=== PATIENT | female | born 1990 | race Caucasian/White ===

== ENCOUNTER 2023-03-24 13:45 | Outpatient (CLI) | payer BC, SELFPAY ==
--- NOTE | 2023-03-24 14:00 | CRLHL7_ITS ---
For Patients: As a result of the Century Cures Act, medical imaging exams and procedure reports are released immediately into your electronic medical record. You may view this report before your referring provider. If you have questions, please contact your health care provider. CLINICAL HISTORY: Displacement of IUD TECHNIQUE: 2D mendes scale and color Doppler images were acquired of the pelvis using a transvaginal approach. FINDINGS: On transvaginal imaging, the myometrium has a normal uniform echotexture. The uterus measures 8.7 x 4.1 x 5.7 cm. IUD is in good position within the endometrial canal. The left ovary measures 3.0 x 2.0 x 2.3 cm in size and the right ovary measures 2.5 x 1.9 x 2.5 cm. The ovaries demonstrate normal arterial and venous blood flow on color Doppler analysis. There are no suspicious fluid collections within the cul-de-sac. IMPRESSION: Normal position of the IUD. Dictated by Reddy Oropeza MD @ 03/25/2023 6:03:56 AM (Electronically Signed)
== END 2023-03-24 13:46 | disposition home or self-care (01) ==
LOC: US 13:46
PROVIDERS: Visit Provider Registered Nurse
DX: Z30.431 Encounter for routine checking of intrauterine contraceptive device (principal)
CPT/HCPCS: 76830

== ENCOUNTER 2023-03-29 07:34 | Outpatient (CLI) | payer BC, SELFPAY ==
--- NOTE | 2023-03-29 07:45 | CRLHL7_ITS ---
For Patients: As a result of the Century Cures Act, medical imaging exams and procedure reports are released immediately into your electronic medical record. You may view this report before your referring provider. If you have questions, please contact your health care provider. DIGITAL DIAGNOSTIC RIGHT MAMMOGRAM WITH IMPLANT-DISPLACED VIEWS USING TOMOSYNTHESIS AND COMPUTER-AIDED DETECTION RIGHT BREAST ULTRASOUND CLINICAL HISTORY: RIGHT breast lump. COMPARISON: None. TECHNIQUE: Digital RIGHT mammogram in three projections. Tomosynthesis and CAD utilized. Real-time ultrasound imaging of RIGHT breast with imaging documentation. BREAST COMPOSITION: The breast is heterogeneously dense, which may obscure small masses. FINDINGS: 3D implant-displaced CC, MLO and true lateral RIGHT breast mammogram images submitted along with 2D non implant-displaced CC and MLO views. The implant is intact. No suspicious masses or architectural distortion. No adenopathy or suspicious calcifications. Targeted RIGHT breast ultrasound performed in the area of concern 9 o`clock 8 cm from the nipple. In this location there is an ovoid simple cyst with a few internal echoes measuring 7 x 4 x 6 millimeters. This is located just beneath the skin. IMPRESSION: Benign simple cyst/sebaceous cyst RIGHT breast 9 o`clock 8 cm from the nipple measuring 7 millimeters. No evidence of implant complication or malignancy. RECOMMENDATIONS: Clinical follow-up. Age-appropriate screening mammography. Results and recommendations discussed with the patient. BI-RADS Category 2: Benign A lay language report of this examination will be provided to the patient. Dictated by Reddy Oropeza MD @ 03/29/2023 9:20:16 AM jj/Dictated by: Reddy Oropeza MD @ 03/29/2023 9:20:00 AM (Electronically Signed)
--- NOTE | 2023-03-29 08:15 | CRLHL7_ITS ---
For Patients: As a result of the Cures Act, medical imaging exams and procedure reports are released immediately into your electronic medical record. You may view this report before your referring provider. If you have questions, please contact your health care provider. PLEASE SEE DIGITAL DIAGNOSTIC RIGHT MAMMOGRAM PERFORMED SAME DAY CRL:kal bowden/Dictated by: Reddy Oropeza MD @ 03/29/2023 9:20:00 AM (Electronically Signed)
== END 2023-03-29 07:35 | disposition home or self-care (01) ==
LOC: MAMMO 07:34
PROVIDERS: Visit Provider Registered Nurse
DX: N63.10 Unspecified lump in the right breast, unspecified quadrant (principal); N60.01 Solitary cyst of right breast
CPT/HCPCS: 76642; 77065; G0279

== ENCOUNTER 2023-08-29 12:51 | Emergency (ER) | payer BC, SELFPAY ==
[2023-08-29 13:06] VITALS: BP 119/75; PULSE 79; RESP 16; TEMP 36.7; O2SAT 99; BMI 26.6
== END 2023-08-29 14:32 | disposition left against medical advice (07) ==
PROVIDERS: Emergency Provider Emergency Medicine
DX: Z53.21 Procedure and treatment not carried out due to patient leaving prior to being seen by health care provider (principal)